=== PATIENT | female | born 1945 | race Caucasian/White ===

== ENCOUNTER → 2018-05-12 10:29 | Outpatient (CLI) | payer MEDICARE, SELFPAY ==
--- NOTE | 2018-05-12 | DI.ECHO.S_ITS ---
[facility]---------+ [facility] +---------+ : : [address] : [place] : : : : [id number] : : : : Phone: [phone]+ Echocardiogram Report + + :Name: SIDNEY NUNEZ Study Date: 05/12/2018 Height: 63 in : :[facility] Weight: 126 lb : : Gender: Female BSA: 1.6 m2 : :: 1945 Age: 72 yrs BP: 122/62 mmHg: :Reason For Study: Aortic valve regurgitation : :Ordering Physician: Kinsey : :Brittney Vincent Performed By: Arpita Kimball : :Referring: Kishore Wyatt : + + Interpretation Summary 1) Normal left ventricular thickness, size, wall motion, and systolic function (EF 60-65%). 2) Normal right ventricular size and function. 3) Mild to moderate aortic regurgitation present. 4) Compared to the Echo 03/04/2017, no significant change. Procedure: A two-dimensional transthoracic echocardiogram with color flow and Doppler was performed. The study quality was technically adequate. Comparison is made with the echocardiogram of 03-04-17. The patient was in normal sinus rhythm during the exam. Left Ventricle: The left ventricle is normal in size, wall thickness, and systolic function without any focal wall motion abnormalities. The ejection fraction is estimated to be 60-65%. Assessment of diastolic parameters indicates normal left ventricular diastolic function and normal filling pressures. Right Ventricle: The right ventricle grossly appears normal in size with probable normal systolic function. Atria: The left atrial size is normal. Right atrial size is normal. The interatrial septum is intact with no evidence for an atrial septal defect. Mitral Valve: The mitral valve leaflets appear mildly thickened, but open well. There is mild mitral regurgitation. There has been no significant change since the previous study. Aortic Valve: The aortic valve opens well. Aortic valve trileaflet on [facility] 03/04/2017. There is no aortic valve stenosis. There is mild to moderate aortic regurgitation. Compared to the prior echo study, there has been no change in the severity of aortic regurgitation. Tricuspid Valve: The tricuspid valve is normal in structure and function. There is a trace or physiologic amount of tricuspid regurgitation. The right ventricular systolic pressure is estimated at 20 mmHg assuming a right atrial pressure of 3 mm Hg. Pulmonic Valve: The pulmonic valve is not well seen, but is grossly normal. There is no pulmonic valvular regurgitation. Great Vessels: The aortic root is normal size. The dimensions of the ascending aorta are normal. The IVC is of normal diameter and collapses greater than 50% with a sniff. This suggests a low right atrial pressure of 3 mm Hg. Pericardium/ Pleura There is no pericardial effusion. There is no pleural effusion. MMode/2D Measurements & Calculations LVIDd: 4.3 cm Ao root diam: 2.5 cm LVIDs: 2.4 cm Aortic Jxn: 2.1 cm FS: 44.0 % asc Aorta Diam: 2.9 cm EPSS: 0.19 cm Ao Arch Diam (Prox Trans): 1.7 cm IVSd: 0.75 cm LVPWd: 0.72 cm LV balderas. diameter/BSA (cm/m^2): 2.7 LV sys. diameter/BSA (cm/m^2): 1.5 LA dimension: 2.9 cm RA long axis: 3.9 cm LA A2 area: 10.4 cm2 RA area: 9.8 cm2 LA A4 area: 13.0 cm2 RA vol: 20.8 ml LA length (vol): 4.4 cm RA : 13.1 ml/m2 LA vol: 25.8 ml IVC diam: 1.5 cm LA vol index: 16.2 ml/m2 RVDd major: 3.9 cm RVD1 (basal): 2.4 cm RVD2 (mid): 1.8 cm Doppler Measurements & Calculations Ao V2 max: 174.6 cm/sec AI P1/2t: 499.7 msec Ao V2 mean: 108.0 cm/sec AI dec slope: 262.1 cm/sec2 Ao max P.2 mmHg Ao mean P.7 mmHg Ao V2 VTI: 35.3 cm MV E max percy: 55.7 cm/sec TR max percy: 203.2 cm/sec MV A max percy: 80.4 cm/sec TR max P.5 mmHg MV E/A: 0.69 PA V2 max: 80.3 cm/sec Med Peak E' Percy: 6.2 cm/sec PA V2 mean: 51.4 cm/sec E/E' med: 9.0 PA mean P.2 mmHg Lat Peak E' Percy: 7.6 cm/sec PA Accel Time: 0.17 sec E/E' lat: 7.4 E/e' average: 8.2 MV dec time: 0.23 sec MV P1/2t: 68.1 msec MV P1/2t max percy: 56.1 cm/sec MVA(2t): 3.2 cm2 Reading Physician:04:06 PM
== END ==
PROVIDERS: PCP Internal Medicine; Visit Provider Internal Medicine Cardiovascular Disease
DX: I08.0 Rheumatic disorders of both mitral and aortic valves (principal); R00.2 Palpitations
CPT/HCPCS: 93306

== ENCOUNTER → 2020-04-26 13:40 | Outpatient (CLI) | payer MEDICARE, SELFPAY ==
--- NOTE | 2020-04-26 14:10 | DI.ECHO.S_ITS ---
Echocardiogram Report + + :Name: SIDNEY NUNEZ Study Date: 04/26/2020 Height: 63 in : :[facility] Weight: 129 lb : : Gender: Female BSA: 1.6 m2 : :: 1945 Age: 74 yrs BP: 148/55 mmHg: :Reason For Study: AI : : Performed By: Bryant Brown : :Referring: DAI VINCENT : + + Interpretation Summary 1) Normal left ventricular thickness, size, wall motion, and systolic function (EF 60-65%). 2) Normal right ventricular size and function. 3) Moderate aortic regurgitation present. 4) Compared to the Echo 05/12/2018, aortic regurgitation has increased from mild-moderate to moderate on this study. Procedure: A two-dimensional transthoracic echocardiogram with color flow and Doppler was performed. The study quality was technically adequate. Comparison is made with the echocardiogram of 05/12/18. The patient was in normal sinus rhythm during the exam. Left Ventricle: The left ventricle is normal in size. There is normal left ventricular wall thickness. The ejection fraction is estimated to be 60-65%. There are no focal wall motion abnormalities. Right Ventricle: The right ventricle is normal in size and function. Atria: Both atria are normal in size. The interatrial septum is intact with no evidence for an atrial septal defect. Mitral Valve: The mitral valve is normal in structure and function. There is mild mitral regurgitation. Aortic Valve: The aortic valve is trileaflet. The aortic valve opens well. There is no hemodynamically significant valvular aortic stenosis. There is moderate aortic regurgitation. Tricuspid Valve: The tricuspid valve is normal in structure and function. No tricuspid regurgitation. Pulmonary artery pressures cannot be estimated because of the lack of a measurable TR jet velocity. Pulmonic Valve: The pulmonic valve is normal in structure and function. There is trace pulmonic regurgitation. Great Vessels: The aortic root is normal size. The dimensions of the ascending aorta are normal. The pulmonary artery is normal size. The IVC is of normal diameter and collapses greater than 50% with a sniff. This suggests a low right atrial pressure of 3 mm Hg. Pericardium/ Pleura There is no pericardial effusion. There is no pleural effusion. MMode/2D Measurements & Calculations LVIDd: 3.9 cm LVOT diam: 1.6 cm LVIDs: 2.3 cm Ao root diam: 2.2 cm FS: 42.1 % asc Aorta Diam: 2.6 cm EPSS: 0.12 cm IVSd: 0.94 cm LVPWd: 0.87 cm LV balderas. diameter/BSA (cm/m^2): 2.4 LV sys. diameter/BSA (cm/m^2): 1.4 LA dimension: 3.2 cm RA long axis: 4.5 cm LA A2 area: 15.0 cm2 RA area: 13.1 cm2 LA A4 area: 19.8 cm2 RA vol: 32.5 ml LA length (vol): 5.4 cm RA : 20.2 ml/m2 LA vol: 46.4 ml IVC diam: 1.4 cm LA vol index: 28.9 ml/m2 Doppler Measurements & Calculations Ao V2 max: 197.9 cm/sec LVOT Max Percy: 105.0 cm/sec Ao V2 mean: 154.1 cm/sec LV V1 max P.4 mmHg Ao max P.7 mmHg LV V1 VTI: 28.2 cm Ao mean P.0 mmHg OLIVIA(I,D): 1.2 cm2 Ao V2 VTI: 48.4 cm OLIVIA(V,D): 1.1 cm2 sev ratio: 0.58 OLIVIA indexed to BSA (cm^2/m^2): 0.73 AI P1/2t: 312.0 msec AI dec slope: 477.1 cm/sec2 MV E max percy: 128.3 cm/sec PA V2 max: 83.2 cm/sec MV A max percy: 111.2 cm/sec PA V2 mean: 67.9 cm/sec MV E/A: 1.2 PA mean P.9 mmHg Med Peak E' Percy: 6.3 cm/sec PA pr(Accel): 3.6 mmHg E/E' med: 20.3 Lat Peak E' Percy: 8.0 cm/sec E/E' lat: 16.0 E/e' average: 18.2 MV dec time: 0.16 sec SV(LVOT): 57.0 ml Reading Physician:12:45 PM
== END ==
PROVIDERS: PCP Internal Medicine; Referring Provider Internal Medicine; Visit Provider Internal Medicine Cardiovascular Disease
DX: I08.0 Rheumatic disorders of both mitral and aortic valves (principal)
CPT/HCPCS: 93306

== ENCOUNTER → 2020-09-04 08:45 | Outpatient (CLI) | payer OTHER, SELFPAY ==
[2020-09-04 09:49] LABS: Add Manual Diff / Slide Review NO; Basophils Absolute Auto 100 /uL (0-100); Basophils Percent Auto 0.9 % (0-2); Eosinophils Absolute Auto 100 /uL (0-450); Eosinophils Percent Auto 0.9 % (2-4); Hematocrit 39.1 % (36-46); Hemoglobin 13.1 g/dL (12.0-16.0); Lymphocytes Absolute Auto 3000 /uL (1100-4500); Mean Corpuscular HGB Conc 33.5 % (30-36); Mean Corpuscular Hemoglobin 29.9 PG (26-34); Mean Corpuscular Volume 89.3 fL (80-100); Monocytes Absolute Auto 400 /uL (0-900); Monocytes Percent Auto 4.9 % (3-14); Neutrophils Absolute Auto 5000 /uL (1500-7000); Neutrophils Percent Auto 58.3 % (50-75); Platelet Count 302 X10^3/uL (150-400); Red Blood Cell Count 4.38 X10^6/uL (4.0-5.2); Red Cell Distribution Width 13.2 % (11.6-14.8); White Blood Cell Count 8.5 X10^3/uL (4.5-11.0)
[2020-09-04 10:14] LABS: BUN Creatinine Ratio 20.9 (6-22); Blood Urea Nitrogen 14 mg/dL (7-17); Calcium 9.5 mg/dL (8.4-10.2); Carbon Dioxide 30 mmol/L (22-32); Chloride 107 mmol/L (98-107); Estimated Glomerular Filt Rate > 60.0 mL/min (>60); Glucose 98 mg/dL (80-110); HEMOLYSIS < 15 (0-50); Potassium 4.2 mmol/L (3.4-5.1); Sodium 141 mmol/L (137-145)
[2020-09-04 10:15] LABS: C-Reactive Protein Quant < 0.5 mg/dL (<1.0); Erythrocyte Sedimentation Rate 25 MM/HR (0-20)
[2020-09-04 10:19] LABS: Vitamin D 25 Hydroxy (D3) 63.1 ng/mL (30.0-100.0)
[2020-09-04 10:43] LABS: TSH w/ Reflex to FT4 4.49 uIU/mL (0.47-4.68)
== END ==
PROVIDERS: PCP Student in an Organized Health Care Education/Training Program; Referring Provider Student in an Organized Health Care Education/Training Program; Visit Provider Student in an Organized Health Care Education/Training Program
DX: E05.90 Thyrotoxicosis, unspecified without thyrotoxic crisis or storm (principal); I10 Essential (primary) hypertension; E55.9 Vitamin D deficiency, unspecified; R51.9 Headache, unspecified; Z78.0 Asymptomatic menopausal state
CPT/HCPCS: 36415; 80048; 82306; 84443; 85025; 85651; 86140

== ENCOUNTER → 2020-09-09 12:36 | Outpatient (CLI) | payer OTHER, SELFPAY ==
--- NOTE | 2020-09-09 12:37 | DI.MRI.S_ITS ---
PROCEDURE: MR HEAD/BRAIN WO CON INDICATIONS: New headache after 50; diplopia TECHNIQUE: Non-contrast axial T1 spin echo, axial T2 fast spin echo, sagittal and axial FLAIR, coronal T2 fast spin echo, axial gradient echo, axial diffusion and ADC through the brain. COMPARISON: February 27, 2011. FINDINGS: Image quality: Excellent. CSF spaces: Ventricles appear symmetric in size and shape. Basal cisterns are patent. No extra-axial fluid collections. Brain: No intracranial bleeds or mass effects. There is mild cerebral volume loss for age. There are minimal periventricular and deep white matter chronic small vessel ischemic changes. Brainstem appears normal. Diffusion-weighted images show no acute ischemic insults. No chronic ischemic insults. Normal intravascular flow voids are present. Skull and face: Calvarial bone marrow is normal in signal. Orbits are normal. Sinuses: Sinuses and mastoids are clear. IMPRESSION: 1. No acute intracranial disease process. 2. No areas of acute or chronic infarction. 3. No abnormal intracranial mass or mass effect. Dictated by: Cheli Holt MD, PhD on 09/09/2020 at 15:27 Approved by: Cheli Holt MD, PhD on 09/09/2020 at 15:46
== END ==
PROVIDERS: PCP Student in an Organized Health Care Education/Training Program; Referring Provider Student in an Organized Health Care Education/Training Program; Visit Provider Student in an Organized Health Care Education/Training Program
DX: R51.9 Headache, unspecified (principal); H53.2 Diplopia; Z13.820 Encounter for screening for osteoporosis; M81.0 Age-related osteoporosis without current pathological fracture; Z78.0 Asymptomatic menopausal state; E05.90 Thyrotoxicosis, unspecified without thyrotoxic crisis or storm; I10 Essential (primary) hypertension; Z91.89 Other specified personal risk factors, not elsewhere classified
CPT/HCPCS: 70551; 77080

== ENCOUNTER → 2020-09-19 09:55 | Outpatient (CLI) | payer MEDICARE, SELFPAY ==
[2020-09-19] MEDS: COVID-19 VACC #1, MRNA(MOD) 100 MCG/0.5 ML VIAL IM (10:01)
== END ==
PROVIDERS: PCP Student in an Organized Health Care Education/Training Program; Visit Provider Internal Medicine
DX: Z23 Encounter for immunization (principal)
CPT/HCPCS: 0011A; 91301

== ENCOUNTER → 2020-10-17 14:13 | Outpatient (CLI) | payer MEDICARE, SELFPAY ==
[2020-10-17] MEDS: COVID-19 VACC #2, MRNA(MOD) 100 MCG/0.5 ML VIAL IM (14:28)
== END ==
PROVIDERS: PCP Student in an Organized Health Care Education/Training Program; Visit Provider Internal Medicine
DX: Z23 Encounter for immunization (principal)
CPT/HCPCS: 0012A; 91301

== ENCOUNTER 2021-01-17 13:45 | Emergency (ER) | payer OTHER, SELFPAY ==
[2021-01-17 13:47] VITALS: BP 197/87; PULSE 81; RESP 17; TEMP 36.7; O2SAT 99
[2021-01-17] MEDS: predniSONE 20 MG TABLET 60 MG PO (13:56)
== END 2021-01-17 15:40 | disposition left against medical advice (07) ==
PROVIDERS: Emergency Provider Emergency Medicine; PCP Student in an Organized Health Care Education/Training Program
DX: L50.9 Urticaria, unspecified (principal)
CPT/HCPCS: 99283

== ENCOUNTER → 2021-03-25 10:04 | Outpatient (CLI) | payer OTHER, SELFPAY ==
--- NOTE | 2021-03-25 10:06 | DI.RAD.S_ITS ---
PROCEDURE: XR HIP W PEL IF DONE RT 2V INDICATIONS: unable to bear weight TECHNIQUE: AP pelvis with lateral view(s) of the right hip(s). COMPARISON: None. FINDINGS: Bones: No fractures or dislocations. Pelvic ring appears intact. No suspicious bony lesions. Soft tissues: The visualized bowel gas pattern is normal. No suspicious soft tissue calcifications. IMPRESSION: Slight hip joint osteoarthritis bilaterally, no trauma found. Dictated by: Say Lowery M.D. on 03/25/2021 at 10:53 Approved by: Say Lowery M.D. on 03/25/2021 at 10:53
== END ==
PROVIDERS: PCP Student in an Organized Health Care Education/Training Program; Referring Provider Physician Assistant; Visit Provider Physician Assistant
DX: R26.89 Other abnormalities of gait and mobility (principal)
CPT/HCPCS: 73502

== ENCOUNTER → 2021-07-10 14:04 | Outpatient (CLI) | payer OTHER, SELFPAY ==
[2021-07-10 14:29] LABS: COVID19 -Nasal RAPID Negative (Negative)
== END ==
PROVIDERS: PCP Student in an Organized Health Care Education/Training Program; Visit Provider Physician Assistant
DX: Z20.822 Contact with and (suspected) exposure to COVID-19 (principal)
CPT/HCPCS: 87635

== ENCOUNTER → 2021-09-08 10:26 | Outpatient (CLI) | payer MEDICARE, SELFPAY ==
[2021-09-08 16:26] LABS: TSH w/ Reflex to FT4 4.22 uIU/mL (0.47-4.68)
== END ==
PROVIDERS: PCP Student in an Organized Health Care Education/Training Program; Referring Provider Student in an Organized Health Care Education/Training Program; Visit Provider Student in an Organized Health Care Education/Training Program
DX: E05.90 Thyrotoxicosis, unspecified without thyrotoxic crisis or storm (principal)
CPT/HCPCS: 36415; 84443

== ENCOUNTER → 2022-05-20 13:44 | Outpatient (CLI) | payer MEDICARE, SELFPAY ==
--- NOTE | 2022-05-20 | DI.ECHO.S_ITS ---
[facility]---------+ [facility] +---------+ : : [address] : [place] : : : : [id number] : : : : Phone: [phone]---------+ Echocardiogram Report + + :Name: SIDNEY NUNEZ Study Date: 05/20/2022 Height: 63 in : :[facility] ReadingLocation: Weight: 130 lb : : Gender: Female BSA: 1.6 m2 : :: 1945 Age: 76 yrs BP: 124/74 mmHg: :Reason For Study: AORTIC INSUFFICIENCY : :Ordering Physician: NAJMA, : :DAI Performed By: Shaina Atkins : :Referring: DAI VINCENT : + + Interpretation Summary 1) Normal left ventricular thickness, size, wall motion, and systolic function (EF 60-65%). 2) Normal right ventricular size and function. 3) Moderate aortic regurgitation present. 4) Compared to the Echo 04/26/2020, no significant change. Procedure: A two-dimensional transthoracic echocardiogram with color flow and Doppler was performed. The study quality was technically adequate. Comparison is made with the echocardiogram of 04/26/2020. The patient was in sinus rhythm with heart rates between 62-76 bpm during the exam. Left Ventricle: The left ventricle is normal in size and wall thickness. The ejection fraction is estimated to be 60-65%. Left ventricular systolic function appears normal without focal wall motion abnormalities. Diastolic function could not be accurately assessed due to contradictory data. Right Ventricle: The right ventricle is normal in size and function. Atria: The left atrial size is normal. Right atrial size is normal. There is no Doppler evidence for an interatrial shunt. Mitral Valve: The mitral valve is normal in structure and function. There is mild mitral regurgitation. Aortic Valve: The aortic valve is not well visualized. There is no aortic valve stenosis. There is moderate aortic regurgitation. Tricuspid Valve: The tricuspid valve is normal in structure and function. There is trace tricuspid regurgitation. Pulmonic Valve: The pulmonic valve is not well visualized. There is no pulmonic valvular regurgitation. Great Vessels: The aortic root is normal size. The dimensions of the ascending aorta are normal. The IVC is of normal diameter and collapses greater than 50% with a sniff. This suggests a low right atrial pressure of 3 mm Hg. Pericardium/ Pleura There is no pericardial effusion. There is no pleural effusion. MMode/2D Measurements & Calculations LVIDd: 4.3 cm LVOT diam: 2.0 cm LVIDs: 2.4 cm Ao root diam: 2.5 cm FS: 43.6 % asc Aorta Diam: 2.8 cm IVSd: 0.84 cm Ao Arch Diam (Prox Trans): 2.0 cm LVPWd: 0.88 cm LV balderas. diameter/BSA (cm/m^2): 2.7 LV sys. diameter/BSA (cm/m^2): 1.5 LA A2 area: 10.6 cm2 RA long axis: 4.1 cm LA A4 area: 11.9 cm2 RA area: 8.8 cm2 LA length (vol): 4.8 cm RA vol: 16.1 ml LA vol: 22.4 ml RA : 10.0 ml/m2 LA vol index: 13.9 ml/m2 IVC diam: 1.7 cm RVD1 (basal): 2.3 cm TAPSE: 1.5 cm Doppler Measurements & Calculations Ao V2 max: 183.1 cm/sec LVOT Max Percy: 104.6 cm/sec Ao V2 mean: 127.4 cm/sec LV V1 max P.4 mmHg Ao max P.4 mmHg LV V1 VTI: 23.4 cm Ao mean P.3 mmHg OLIVIA(I,D): 1.9 cm2 Ao V2 VTI: 38.1 cm OLIVIA(V,D): 1.8 cm2 sev ratio: 0.61 OLIVIA indexed to BSA (cm^2/m^2): 1.2 AI P1/2t: 392.5 msec AI dec slope: 370.1 cm/sec2 MV E max percy: 69.2 cm/sec PA V2 max: 82.8 cm/sec MV A max percy: 73.7 cm/sec PA V2 mean: 53.5 cm/sec MV E/A: 0.94 PA mean P.3 mmHg Med Peak E' Percy: 4.4 cm/sec PA pr(Accel): 27.6 mmHg E/E' med: 15.8 Lat Peak E' Percy: 5.6 cm/sec E/E' lat: 12.3 E/e' average: 14.1 MV dec time: 0.24 sec SV(LVOT): 72.9 ml Reading Physician:04:32 PM
== END ==
PROVIDERS: PCP Student in an Organized Health Care Education/Training Program; Referring Provider Internal Medicine Cardiovascular Disease; Visit Provider Internal Medicine Cardiovascular Disease
DX: I08.0 Rheumatic disorders of both mitral and aortic valves (principal)
CPT/HCPCS: 93306

== ENCOUNTER → 2022-10-15 09:40 | Outpatient (CLI) | payer MEDICARE, SELFPAY | PROVIDERS: PCP Student in an Organized Health Care Education/Training Program; Referring Provider Student in an Organized Health Care Education/Training Program; Visit Provider Student in an Organized Health Care Education/Training Program | DX: M81.0 Age-related osteoporosis without current pathological fracture (principal); Z13.820 Encounter for screening for osteoporosis; Z78.0 Asymptomatic menopausal state | CPT/HCPCS: 77080 ==

== ENCOUNTER → 2023-10-22 08:34 | Outpatient (CLI) | payer MEDICARE, SELFPAY ==
[2023-10-22 09:41] LABS: Alanine Aminotransferase 19 IU/L (<35); Albumin 4.3 g/dL (3.5-5.0); Albumin Globulin Ratio 1.3 (1.0-2.8); Alkaline Phosphatase 54 U/L (38-126); Aspartate Aminotransferase 24 IU/L (14-36); BUN Creatinine Ratio 27.5 (6-22); Bilirubin Total 0.4 mg/dL (0.2-1.3); Blood Urea Nitrogen 19 mg/dL (7-17); Calcium 9.7 mg/dL (8.4-10.2); Carbon Dioxide 26 mmol/L (22-32); Chloride 109 mmol/L (98-107); Estimated Glomerular Filt Rate > 60 mL/min (>60); Globulin 3.2 g/dL (1.7-4.1); Glucose 96 mg/dL (80-110); HEMOLYSIS < 15 (0-50); Potassium 4.2 mmol/L (3.4-5.1); Sodium 141 mmol/L (137-145); Total Protein 7.5 g/dL (6.3-8.2)
[2023-10-22 10:03] LABS: TSH w/ Reflex to FT4 4.31 uIU/mL (0.47-4.68)
== END ==
PROVIDERS: PCP Nurse Practitioner; Referring Provider Physician Assistant; Visit Provider Physician Assistant
DX: E05.00 Thyrotoxicosis with diffuse goiter without thyrotoxic crisis or storm (principal)
CPT/HCPCS: 36415; 80053; 84443

== ENCOUNTER → 2024-02-07 10:41 | Outpatient (CLI) | payer MEDICARE, SELFPAY ==
[2024-02-07 11:29] LABS: Add Manual Diff / Slide Review NO; Basophils Absolute Auto 100 /uL (0-100); Basophils Percent Auto 0.6 % (0-2); Eosinophils Absolute Auto 100 /uL (0-450); Eosinophils Percent Auto 0.6 % (2-4); Hematocrit 37.1 % (36-46); Hemoglobin 12.6 g/dL (12.0-16.0); Lymphocytes Absolute Auto 2600 /uL (1100-4500); Lymphocytes Percent Auto 25.7 % (25-40); Mean Corpuscular HGB Conc 33.9 % (30-36); Mean Corpuscular Hemoglobin 30.4 PG (26-34); Mean Corpuscular Volume 89.5 fL (80-100); Monocytes Absolute Auto 500 /uL (0-900); Monocytes Percent Auto 5.2 % (3-14); Neutrophils Absolute Auto 6900 /uL (1500-7000); Neutrophils Percent Auto 67.9 % (50-75); Platelet Count 293 X10^3/uL (150-400); Red Blood Cell Count 4.14 X10^6/uL (4.0-5.2); Red Cell Distribution Width 13.3 % (11.6-14.8); White Blood Cell Count 10.1 X10^3/uL (4.5-11.0)
[2024-02-07 11:50] LABS: Alanine Aminotransferase 16 IU/L (<35); Albumin 4.5 g/dL (3.5-5.0); Albumin Globulin Ratio 1.6 (1.0-2.8); Alkaline Phosphatase 54 U/L (38-126); Aspartate Aminotransferase 20 IU/L (14-36); BUN Creatinine Ratio 32.5 (6-22); Bilirubin Total 0.4 mg/dL (0.2-1.3); Blood Urea Nitrogen 26 mg/dL (7-17); Calcium 9.8 mg/dL (8.4-10.2); Carbon Dioxide 29 mmol/L (22-32); Chloride 108 mmol/L (98-107); Cholesterol 261 mg/dL (140-199); Estimated Glomerular Filt Rate > 60 mL/min (>60); Globulin 2.9 g/dL (1.7-4.1); Glucose 123 mg/dL (80-110); HDL Cholesterol 97 mg/dL (40-60); HEMOLYSIS < 15 (0-50); LDL Cholesterol Calculated 134 mg/dL (<100); Potassium 4.2 mmol/L (3.4-5.1); Sodium 141 mmol/L (137-145); Total Protein 7.4 g/dL (6.3-8.2); Triglycerides 148 mg/dL (35-150)
[2024-02-07 12:19] LABS: Thyroid Stimulating Hormone 3.26 uIU/mL (0.47-4.68)
[2024-02-07 17:23] LABS: Creatinine Urine Random 103.01 mg/dL
[2024-02-07 17:45] LABS: Hep C Virus Ab w/Reflex Quant NEGATIVE s/c (NEGATIVE)
== END ==
PROVIDERS: PCP Nurse Practitioner; Referring Provider Nurse Practitioner; Visit Provider Nurse Practitioner
DX: Z11.59 Encounter for screening for other viral diseases (principal); R53.83 Other fatigue; I10 Essential (primary) hypertension; E05.00 Thyrotoxicosis with diffuse goiter without thyrotoxic crisis or storm
CPT/HCPCS: 36415; 80053; 80061; 82043; 82570; 84443; 85025; 86803

== ENCOUNTER → 2024-02-08 11:12 | Outpatient (CLI) | payer MEDICARE, SELFPAY ==
--- NOTE | 2024-02-08 11:19 | DI.US.S_ITS ---
PROCEDURE: US ABDOMEN COMPLETE INDICATIONS: epigastric pain, family history of gastric cancer TECHNIQUE: Real-time scanning was performed of the abdominal and retroperitoneal organs, with image documentation. COMPARISON: None. FINDINGS: Liver: Liver is normal in size and homogeneous in echotexture. Gallbladder: No findings of gallstones or sludge are seen. The gallbladder wall is not thickened, measuring 3 mm or less. No specific pericholecystic fluid is seen. The sonographic Barba sign is negative. Biliary ducts: Intrahepatic bile ducts are non-dilated. Extrahepatic bile duct caliber measures 6 mm. Normal is 6-7 mm or less in diameter, or 10 mm or less post-cholecystectomy. Pancreas: Visualized portions of the pancreas are sonographically normal. Spleen: Spleen is normal in size and homogeneous in echotexture. Kidneys: Kidneys are normal in size and echotexture. Right kidney measures 9.6 cm long; left kidney measures 9.9 cm long. No hydronephrosis or nephrolithiasis. No solid masses. Aorta: Visualized aorta is normal in caliber at less than 3 cm. Iliacs: Proximal common iliac arteries are normal in caliber at less than 2.5 cm. IVC: Intrahepatic inferior vena cava is patent. Miscellaneous: No free abdominal fluid. IMPRESSION: The gallbladder demonstrates a normal sonographic appearance. No biliary dilatation is seen. (This stomach itself is not evaluated on this standard abdominal ultrasound study.) Dictated by: Ryan Stuart M.D. on 02/08/2024 at 16:47 Approved by: Ryan Stuart M.D. on 02/08/2024 at 16:48
[2024-02-11 13:36] LABS: H. Pylori Antigen Stool Positive (Negative)
== END ==
PROVIDERS: PCP Nurse Practitioner; Referring Provider Nurse Practitioner; Visit Provider Nurse Practitioner
DX: R10.13 Epigastric pain (principal)
CPT/HCPCS: 76700; 87338

== ENCOUNTER → 2024-03-16 13:54 | Outpatient (CLI) | payer MEDICARE, SELFPAY ==
[2024-03-20 15:08] LABS: Interpretation Negative (Negative)
== END ==
PROVIDERS: PCP Nurse Practitioner; Referring Provider Surgery; Visit Provider Surgery
DX: K27.9 Peptic ulcer, site unspecified, unspecified as acute or chronic, without hemorrhage or perforation (principal); B96.81 Helicobacter pylori [H. pylori] as the cause of diseases classified elsewhere
CPT/HCPCS: 83013

== ENCOUNTER → 2024-06-06 12:44 | Outpatient (CLI) | payer MEDICARE, SELFPAY ==
--- NOTE | 2024-06-06 12:45 | DI.ECHO.S_ITS ---
[facility] +---------+ [facility] : : [address] : : [place] : : [id number] : : Phone: [phone] Echocardiogram Report + + :Name: SIDNEY NUNEZ Study Date: 06/06/2024 Height: 63 in : :Hospital ReadingLocation: Weight: 129 lb : : Gender: Female BSA: 1.6 m2 : :: 1945 Age: 78 yrs BP: 112/75 mmHg: :Reason For Study: AORTIC VALVE INSUFFICIENCY : :Ordering Physician: NAJMA, : :DAI Performed By: Shaina Atkins : :Referring: DAI VINCENT : + + Interpretation Summary 1) Normal left ventricular thickness, size, wall motion, and systolic function (EF 60-65%). 2) Normal right ventricular size and function. 3) Mild to moderate aortic regurgitation present. 4) Compared to the Echo 05/20/2022, aortic regurgitation has decreased from moderate to mild-moderate on this study. Procedure: A two-dimensional transthoracic echocardiogram with color flow and Doppler was performed. The study quality was technically adequate. Comparison is made with the echocardiogram of 05/20/2022. The patient was in sinus rhythm with heart rates between 68-72 bpm during the exam. Left Ventricle: The left ventricle is normal in size and wall thickness. The ejection fraction is estimated to be 60-65%. Left ventricular systolic function appears normal without focal wall motion abnormalities. Right Ventricle: The right ventricle is normal in size and function. Atria: The left atrial size is normal. Right atrial size is normal. There is no Doppler evidence for an interatrial shunt. Mitral Valve: The mitral valve is normal in structure and function. There is mild mitral regurgitation. Aortic Valve: The aortic valve is not well visualized. There is no aortic valve stenosis. There is mild to moderate aortic regurgitation. Tricuspid Valve: The tricuspid valve is normal in structure and function. There is a trace or physiologic amount of tricuspid regurgitation. Pulmonary artery pressures cannot be estimated because of the lack of a measurable TR jet velocity. Pulmonic Valve: The pulmonic valve is not well visualized. There is a trace or physiologic amount of pulmonic regurgitation. Great Vessels: The aortic root is normal size. The dimensions of the ascending aorta are normal. The IVC is of normal diameter and collapses greater than 50% with a sniff. This suggests a low right atrial pressure of 3 mm Hg. Pericardium/ Pleura There is no pericardial effusion. There is no pleural effusion. MMode/2D Measurements & Calculations LVIDd: 4.4 cm LVOT diam: 2.0 cm LVIDs: 2.7 cm Ao root diam: 2.3 cm FS: 38.3 % asc Aorta Diam: 2.5 cm IVSd: 0.69 cm Ao Arch Diam (Prox Trans): 1.7 cm LVPWd: 0.88 cm LV balderas. diameter/BSA (cm/m^2): 2.7 LV sys. diameter/BSA (cm/m^2): 1.7 LA A2 area: 12.1 cm2 RA long axis: 4.0 cm LA A4 area: 9.9 cm2 RA area: 10.0 cm2 LA length (vol): 4.9 cm RA vol: 21.4 ml LA vol: 20.6 ml RA : 13.3 ml/m2 LA vol index: 12.9 ml/m2 IVC diam: 1.3 cm RVD1 (basal): 2.0 cm RVD2 (mid): 1.5 cm TAPSE: 1.8 cm Doppler Measurements & Calculations Ao V2 max: 175.7 cm/sec LVOT Max Percy: 108.0 cm/sec Ao V2 mean: 122.6 cm/sec LV V1 max P.7 mmHg Ao max P.4 mmHg LV V1 VTI: 22.7 cm Ao mean P.6 mmHg OLIVIA(I,D): 1.9 cm2 Ao V2 VTI: 35.2 cm OLIVIA(V,D): 1.8 cm2 sev ratio: 0.65 OLIVIA indexed to BSA (cm^2/m^2): 1.2 AI P1/2t: 458.5 msec AI dec slope: 284.1 cm/sec2 MV E max percy: 67.8 cm/sec PA V2 max: 84.7 cm/sec MV A max percy: 80.5 cm/sec PA V2 mean: 60.8 cm/sec MV E/A: 0.84 PA mean P.6 mmHg Med Peak E' Percy: 5.2 cm/sec PA pr(Accel): 41.3 mmHg E/E' med: 13.0 Lat Peak E' Percy: 8.1 cm/sec E/E' lat: 8.4 E/e' average: 10.7 MV dec time: 0.29 sec SV(LVOT): 68.1 ml Reading Physician:05:20 PM
== END ==
LOC: ECHO 12:45
PROVIDERS: PCP Family Medicine; Referring Provider Internal Medicine Cardiovascular Disease; Visit Provider Internal Medicine Cardiovascular Disease
DX: I08.0 Rheumatic disorders of both mitral and aortic valves (principal)
CPT/HCPCS: 93306

== ENCOUNTER → 2025-02-09 07:49 | Outpatient (CLI) | payer MEDICARE, SELFPAY ==
[2025-02-09 09:53] LABS: Alanine Aminotransferase 23 IU/L (<35); Albumin 4.9 g/dL (3.5-5.0); Albumin Globulin Ratio 1.6 (1.0-2.8); Alkaline Phosphatase 61 U/L (38-126); Aspartate Aminotransferase 28 IU/L (14-36); BUN Creatinine Ratio 24.4 (6-22); Bilirubin Total 0.5 mg/dL (0.2-1.3); Blood Urea Nitrogen 19 mg/dL (7-17); Calcium 9.9 mg/dL (8.4-10.2); Carbon Dioxide 27 mmol/L (22-32); Chloride 105 mmol/L (98-107); Cholesterol 311 mg/dL (140-199); Estimated Glomerular Filt Rate > 60 mL/min (>60); Globulin 3.1 g/dL (1.7-4.1); Glucose 103 mg/dL (70-99); HDL Cholesterol 104 mg/dL (40-60); HEMOLYSIS < 15 (0-50); LDL Cholesterol Calculated 174 mg/dL (<100); Potassium 4.8 mmol/L (3.4-5.1); Sodium 141 mmol/L (137-145); Triglycerides 164 mg/dL (35-150)
== END ==
PROVIDERS: PCP Family Medicine; Referring Provider Family Medicine; Visit Provider Family Medicine
DX: E78.5 Hyperlipidemia, unspecified (principal); R25.2 Cramp and spasm
CPT/HCPCS: 36415; 80053; 80061